=== PATIENT | male | born 1980 | race Two or more races ===

== ENCOUNTER 2021-10-01 19:02 | Emergency (ER) | payer SELFPAY ==
[~2021-10-01] VITALS: Ht 162.6 cm; Wt 77.1 kg
[2021-10-01] MEDS ORDERED: TETANUS-DIPTH-ACEL PERTUSSIS 0.5ML SYR Tdap IM ONE (20:30)
[2021-10-01] MEDS ORDERED: BACITRACIN TOP OINT 1 UD PKG TOP ONE (21:00)
[2021-10-02] MEDS ORDERED: CEPH-509 PO (00:32)
[2021-10-02 01:25] VITALS: BP 132/86
== END 2021-10-02 01:39 | disposition home or self-care (01) ==
LOC: ER 19:02
DX: S61.211A Laceration without foreign body of left index finger without damage to nail, initial encounter (principal); W22.8XXA Striking against or struck by other objects, initial encounter; Y93.89 Activity, other specified; Y92.9 Unspecified place or not applicable; Y99.8 Other external cause status
CPT/HCPCS: 12002; 73130; 90471; 90715